=== PATIENT | female | born 1950 | race American Indian/Alaskan Native ===

== ENCOUNTER 2018-07-14 08:06 | Outpatient (CLI) | payer MEDICAID ==
[2018-07-14] MEDS ORDERED: XYLOCAINE TOPICAL 4% TP NR (08:10)
[2018-07-14] MEDS ORDERED: AD OINTMENT TP SCH (10:00)
== END 2018-07-14 08:07 | disposition home or self-care (01) ==
LOC: WOUND 08:06
PROVIDERS: ATTEND Surgery
DX: E11.622 Type 2 diabetes mellitus with other skin ulcer (principal); L97.312 Non-pressure chronic ulcer of right ankle with fat layer exposed; E11.621 Type 2 diabetes mellitus with foot ulcer; L97.512 Non-pressure chronic ulcer of other part of right foot with fat layer exposed; I10 Essential (primary) hypertension
CPT/HCPCS: 11042; G0463; 99205; A6250

== ENCOUNTER 2018-07-21 07:57 | Outpatient (CLI) | payer MEDICAID ==
[2018-07-21] MEDS ORDERED: XYLOCAINE TOPICAL 4% TP ONE (09:00)
== END 2018-07-21 07:58 | disposition home or self-care (01) ==
LOC: WOUND 07:57
PROVIDERS: ATTEND Surgery
DX: E11.621 Type 2 diabetes mellitus with foot ulcer (principal); L97.522 Non-pressure chronic ulcer of other part of left foot with fat layer exposed; E11.622 Type 2 diabetes mellitus with other skin ulcer; L97.812 Non-pressure chronic ulcer of other part of right lower leg with fat layer exposed; L97.312 Non-pressure chronic ulcer of right ankle with fat layer exposed; L97.512 Non-pressure chronic ulcer of other part of right foot with fat layer exposed; I10 Essential (primary) hypertension

== ENCOUNTER 2018-07-25 08:06 | Outpatient (CLI) | payer MEDICAID ==
--- NOTE | 2018-07-25 21:25 | Vascular Lab Report ---
PROCEDURE: US BILATERAL LOWER EXTREMITY VENOUS DUPLEX DOPPLER TECHNIQUE: Duplex Doppler ultrasound of the BILATERAL common and superficial femoral, popliteal, pos terior tibial, proximal deep femoral and greater and small saphenous veins was attempted. Palmer scale imaging with and without compression, spectral waveform analysis with and without augmentation, and c olor flow Doppler were employed. CPT 74578 HISTORY: COMPARISONS: None . FINDINGS: RIGHT LOWER EXTREMITY: Deep Venous Thrombus: None . Superficial Venous Thrombus: None . Venous valvular incompetence: Deep venous reflux is noted in the right common femoral vein measuring 1742 ms. Superficial venous reflux is noted in the right saphenofemoral junction measuring 7867 ms. No reflux is noted in the small saphenous vein. Soft tissue abnormality: None . Other: None . LEFT LOWER EXTREMITY: Deep Venous Thrombus: None . Superficial Venous Thrombus: None . Venous valvular incompetence: Deep venous reflux is noted in the left common femoral vein measuring 2542 ms . No reflux is noted in the greater or small saphenous veins. Soft tissue abnormality: None . Other: None . IMPRESSION: No evidence of deep venous thrombosis Deep venous reflux involving bilateral common femoral veins Superficial venous reflux involving the right saphenofemoral junction. This document is electronically signed by Pablito Lam MD., July 25 2018 09:23:32 PM ET
--- NOTE | 2018-07-26 01:27 | Vascular Lab Report ---
PROCEDURE: US BILATERAL LOWER EXTREMITY ARTERIAL DUPLEX DOPPLER TECHNIQUE: Duplex Doppler ultrasound of either the bilateral lower extremity arteries or arterial by pass grafts was performed with image documentation. HISTORY: Bilateral wolfe wounds COMPARISONS: None . FINDINGS: Arterial waveforms: Triphasic . Thrombus/Stenosis: None . Color signal: Normal . Significant segmental velocity differential: None . Arterial bypass graft: Not present . IMPRESSION: No evidence of significant arterial insufficiency in the bilateral lower extremity. This document is electronically signed by Macy Kaplan DO., July 26 2018 01:25:33 AM ET
== END 2018-07-25 08:07 | disposition home or self-care (01) ==
LOC: VAS 08:06
PROVIDERS: ATTEND Internal Medicine
DX: I82.403 Acute embolism and thrombosis of unspecified deep veins of lower extremity, bilateral (principal)
CPT/HCPCS: 93925; 93970

== ENCOUNTER 2018-07-28 08:12 | Outpatient (CLI) | payer MEDICAID ==
[2018-07-28] MEDS ORDERED: AD OINTMENT TP PRN (08:22)
[2018-07-28] MEDS ORDERED: XYLOCAINE 2%/EPI 1:100,000 INFILTRATI ONE (09:00)
[2018-07-28] MEDS ORDERED: XYLOCAINE 2%/ EPI 1:200,000 INFILTRATI ONE (09:00)
== END 2018-07-28 08:13 | disposition home or self-care (01) ==
LOC: WOUND 08:12
PROVIDERS: ATTEND Surgery
DX: E11.621 Type 2 diabetes mellitus with foot ulcer (principal); L97.522 Non-pressure chronic ulcer of other part of left foot with fat layer exposed; L97.512 Non-pressure chronic ulcer of other part of right foot with fat layer exposed; E11.622 Type 2 diabetes mellitus with other skin ulcer; L97.822 Non-pressure chronic ulcer of other part of left lower leg with fat layer exposed; L97.312 Non-pressure chronic ulcer of right ankle with fat layer exposed; L97.812 Non-pressure chronic ulcer of other part of right lower leg with fat layer exposed; E66.3 Overweight; I10 Essential (primary) hypertension; Z68.27 Body mass index [BMI] 27.0-27.9, adult
CPT/HCPCS: A6250

== ENCOUNTER 2018-08-11 08:01 | Outpatient (CLI) | payer MEDICAID ==
[2018-08-11] MEDS ORDERED: XYLOCAINE TOPICAL 4% TP ONE (08:30)
[2018-08-11] MEDS ORDERED: XYLOCAINE TOPICAL 2% 30ML TP ONE (08:30)
== END 2018-08-11 08:02 | disposition home or self-care (01) ==
LOC: WOUND 08:01
PROVIDERS: ATTEND Surgery
DX: E11.621 Type 2 diabetes mellitus with foot ulcer (principal); L97.522 Non-pressure chronic ulcer of other part of left foot with fat layer exposed; E11.622 Type 2 diabetes mellitus with other skin ulcer; L97.822 Non-pressure chronic ulcer of other part of left lower leg with fat layer exposed; L97.312 Non-pressure chronic ulcer of right ankle with fat layer exposed; L97.512 Non-pressure chronic ulcer of other part of right foot with fat layer exposed; L97.812 Non-pressure chronic ulcer of other part of right lower leg with fat layer exposed; E66.3 Overweight; Z68.27 Body mass index [BMI] 27.0-27.9, adult

== ENCOUNTER 2018-08-15 08:08 | Outpatient (CLI) | payer MEDICAID | END 2018-08-15 08:09 | disposition home or self-care (01) | LOC: WOUND 08:08 | PROVIDERS: ATTEND Surgery | DX: E11.621 Type 2 diabetes mellitus with foot ulcer (principal); L97.521 Non-pressure chronic ulcer of other part of left foot limited to breakdown of skin; L97.511 Non-pressure chronic ulcer of other part of right foot limited to breakdown of skin; E11.622 Type 2 diabetes mellitus with other skin ulcer; L97.821 Non-pressure chronic ulcer of other part of left lower leg limited to breakdown of skin; L97.311 Non-pressure chronic ulcer of right ankle limited to breakdown of skin; L97.811 Non-pressure chronic ulcer of other part of right lower leg limited to breakdown of skin; I10 Essential (primary) hypertension ==

== ENCOUNTER 2018-08-18 07:58 | Outpatient (CLI) | payer MEDICAID ==
[2018-08-18] MEDS ORDERED: XYLOCAINE TOPICAL 4% TP ONE (08:17)
== END 2018-08-18 07:59 | disposition home or self-care (01) ==
LOC: WOUND 07:58
PROVIDERS: ATTEND Surgery
DX: E11.621 Type 2 diabetes mellitus with foot ulcer (principal); L97.522 Non-pressure chronic ulcer of other part of left foot with fat layer exposed; L97.512 Non-pressure chronic ulcer of other part of right foot with fat layer exposed; E11.622 Type 2 diabetes mellitus with other skin ulcer; L97.822 Non-pressure chronic ulcer of other part of left lower leg with fat layer exposed; L97.312 Non-pressure chronic ulcer of right ankle with fat layer exposed; L97.812 Non-pressure chronic ulcer of other part of right lower leg with fat layer exposed; I10 Essential (primary) hypertension

== ENCOUNTER 2018-08-22 08:07 | Outpatient (CLI) | payer MEDICAID | END 2018-08-22 08:08 | disposition home or self-care (01) | LOC: WOUND 08:07 | PROVIDERS: ATTEND Surgery | DX: E11.621 Type 2 diabetes mellitus with foot ulcer (principal); L97.521 Non-pressure chronic ulcer of other part of left foot limited to breakdown of skin; L97.511 Non-pressure chronic ulcer of other part of right foot limited to breakdown of skin; E11.622 Type 2 diabetes mellitus with other skin ulcer; L97.821 Non-pressure chronic ulcer of other part of left lower leg limited to breakdown of skin; L97.811 Non-pressure chronic ulcer of other part of right lower leg limited to breakdown of skin; L97.311 Non-pressure chronic ulcer of right ankle limited to breakdown of skin; I10 Essential (primary) hypertension ==

== ENCOUNTER 2018-08-25 08:06 | Outpatient (CLI) | payer MEDICAID ==
[2018-08-25] MEDS ORDERED: XYLOCAINE TOPICAL 4% TP ONE (08:12)
[2018-08-25] MEDS ORDERED: XYLOCAINE TOPICAL 2% 30ML TP ONE (08:13)
== END 2018-08-25 08:07 | disposition home or self-care (01) ==
LOC: WOUND 08:06
PROVIDERS: ATTEND Surgery
DX: E11.621 Type 2 diabetes mellitus with foot ulcer (principal); L97.522 Non-pressure chronic ulcer of other part of left foot with fat layer exposed; L97.512 Non-pressure chronic ulcer of other part of right foot with fat layer exposed; E11.622 Type 2 diabetes mellitus with other skin ulcer; L97.822 Non-pressure chronic ulcer of other part of left lower leg with fat layer exposed; L97.312 Non-pressure chronic ulcer of right ankle with fat layer exposed; L97.812 Non-pressure chronic ulcer of other part of right lower leg with fat layer exposed; I10 Essential (primary) hypertension

== ENCOUNTER 2018-09-05 08:02 | Outpatient (CLI) | payer MEDICAID ==
[2018-09-05] MEDS ORDERED: AD OINTMENT TP PRN (08:21)
== END 2018-09-05 08:03 | disposition home or self-care (01) ==
LOC: WOUND 08:02
PROVIDERS: ATTEND Surgery
DX: E11.622 Type 2 diabetes mellitus with other skin ulcer (principal); L97.822 Non-pressure chronic ulcer of other part of left lower leg with fat layer exposed; L97.312 Non-pressure chronic ulcer of right ankle with fat layer exposed; L97.812 Non-pressure chronic ulcer of other part of right lower leg with fat layer exposed; E11.621 Type 2 diabetes mellitus with foot ulcer; L97.512 Non-pressure chronic ulcer of other part of right foot with fat layer exposed; I10 Essential (primary) hypertension
CPT/HCPCS: A6250

== ENCOUNTER 2018-09-08 08:06 | Outpatient (CLI) | payer MEDICAID ==
[2018-09-08] MEDS ORDERED: XYLOCAINE TOPICAL 4% TP ONE (08:14)
[2018-09-08] MEDS ORDERED: SILVER NITRATE TP ONE ×2 (08:14→08:58)
[2018-09-08] MEDS ORDERED: XYLOCAINE TOPICAL 2% 30ML TP ONE (08:21)
== END 2018-09-08 08:07 | disposition home or self-care (01) ==
LOC: WOUND 08:06
PROVIDERS: ATTEND Surgery
DX: E11.622 Type 2 diabetes mellitus with other skin ulcer (principal); L97.822 Non-pressure chronic ulcer of other part of left lower leg with fat layer exposed; L97.312 Non-pressure chronic ulcer of right ankle with fat layer exposed; L97.812 Non-pressure chronic ulcer of other part of right lower leg with fat layer exposed; L97.512 Non-pressure chronic ulcer of other part of right foot with fat layer exposed; I10 Essential (primary) hypertension

== ENCOUNTER 2018-09-12 07:55 | Outpatient (CLI) | payer MEDICAID | END 2018-09-12 07:56 | disposition home or self-care (01) | LOC: WOUND 07:55 | PROVIDERS: ATTEND Surgery | DX: E11.622 Type 2 diabetes mellitus with other skin ulcer (principal); L97.822 Non-pressure chronic ulcer of other part of left lower leg with fat layer exposed; L97.312 Non-pressure chronic ulcer of right ankle with fat layer exposed; L97.812 Non-pressure chronic ulcer of other part of right lower leg with fat layer exposed; E11.621 Type 2 diabetes mellitus with foot ulcer; L97.512 Non-pressure chronic ulcer of other part of right foot with fat layer exposed; I10 Essential (primary) hypertension ==

== ENCOUNTER 2018-09-15 07:59 | Outpatient (CLI) | payer MEDICAID ==
[2018-09-15] MEDS ORDERED: XYLOCAINE TOPICAL 2% 30ML TP NR (08:30)
[2018-09-15] MEDS ORDERED: XYLOCAINE TOPICAL 4% TP NR (08:30)
[2018-09-15] MEDS ORDERED: SILVER NITRATE TP NR (08:30)
== END 2018-09-15 08:00 | disposition home or self-care (01) ==
LOC: WOUND 07:59
PROVIDERS: ATTEND Surgery
DX: E11.622 Type 2 diabetes mellitus with other skin ulcer (principal); L97.822 Non-pressure chronic ulcer of other part of left lower leg with fat layer exposed; L97.812 Non-pressure chronic ulcer of other part of right lower leg with fat layer exposed; I10 Essential (primary) hypertension; E66.3 Overweight; Z68.27 Body mass index [BMI] 27.0-27.9, adult

== ENCOUNTER 2018-09-19 07:54 | Outpatient (CLI) | payer MEDICAID | END 2018-09-19 07:55 | disposition home or self-care (01) | LOC: WOUND 07:54 | PROVIDERS: ATTEND Surgery | DX: E11.622 Type 2 diabetes mellitus with other skin ulcer (principal); L97.821 Non-pressure chronic ulcer of other part of left lower leg limited to breakdown of skin; L97.811 Non-pressure chronic ulcer of other part of right lower leg limited to breakdown of skin; I10 Essential (primary) hypertension ==

== ENCOUNTER 2018-09-26 07:54 | Outpatient (CLI) | payer MEDICAID | END 2018-09-26 07:55 | disposition home or self-care (01) | LOC: WOUND 07:54 | PROVIDERS: ATTEND Surgery | DX: E11.622 Type 2 diabetes mellitus with other skin ulcer (principal); L97.821 Non-pressure chronic ulcer of other part of left lower leg limited to breakdown of skin; L97.811 Non-pressure chronic ulcer of other part of right lower leg limited to breakdown of skin; I10 Essential (primary) hypertension ==

== ENCOUNTER 2018-10-06 08:08 | Outpatient (CLI) | payer MEDICAID ==
[2018-10-06] MEDS ORDERED: XYLOCAINE TOPICAL 4% TP ONE (08:58)
== END 2018-10-06 08:09 | disposition home or self-care (01) ==
LOC: WOUND 08:08
PROVIDERS: ATTEND Surgery
DX: E11.622 Type 2 diabetes mellitus with other skin ulcer (principal); L97.822 Non-pressure chronic ulcer of other part of left lower leg with fat layer exposed; L97.811 Non-pressure chronic ulcer of other part of right lower leg limited to breakdown of skin; E11.621 Type 2 diabetes mellitus with foot ulcer; L97.812 Non-pressure chronic ulcer of other part of right lower leg with fat layer exposed; I10 Essential (primary) hypertension; E66.3 Overweight; Z68.27 Body mass index [BMI] 27.0-27.9, adult

== ENCOUNTER 2018-10-10 08:01 | Outpatient (CLI) | payer MEDICAID | END 2018-10-10 08:02 | disposition home or self-care (01) | LOC: WOUND 08:01 | PROVIDERS: ATTEND Surgery | DX: E11.622 Type 2 diabetes mellitus with other skin ulcer (principal); L97.821 Non-pressure chronic ulcer of other part of left lower leg limited to breakdown of skin; L97.811 Non-pressure chronic ulcer of other part of right lower leg limited to breakdown of skin; E11.621 Type 2 diabetes mellitus with foot ulcer; L97.512 Non-pressure chronic ulcer of other part of right foot with fat layer exposed; I10 Essential (primary) hypertension ==

== ENCOUNTER 2018-10-13 07:49 | Outpatient (CLI) | payer MEDICAID ==
[2018-10-13] MEDS ORDERED: XYLOCAINE TOPICAL 4% TP ONE (08:30)
[2018-10-13] MEDS ORDERED: SILVER NITRATE TP ONE (08:30)
== END 2018-10-13 07:50 | disposition home or self-care (01) ==
LOC: WOUND 07:49
PROVIDERS: ATTEND Surgery
DX: E11.622 Type 2 diabetes mellitus with other skin ulcer (principal); I87.313 Chronic venous hypertension (idiopathic) with ulcer of bilateral lower extremity; L97.821 Non-pressure chronic ulcer of other part of left lower leg limited to breakdown of skin; L97.811 Non-pressure chronic ulcer of other part of right lower leg limited to breakdown of skin; E11.621 Type 2 diabetes mellitus with foot ulcer; L97.512 Non-pressure chronic ulcer of other part of right foot with fat layer exposed; I10 Essential (primary) hypertension

== ENCOUNTER 2018-10-17 08:01 | Outpatient (CLI) | payer MEDICAID | END 2018-10-17 08:02 | disposition home or self-care (01) | LOC: WOUND 08:01 | PROVIDERS: ATTEND Surgery | DX: E11.622 Type 2 diabetes mellitus with other skin ulcer (principal); I87.313 Chronic venous hypertension (idiopathic) with ulcer of bilateral lower extremity; L97.821 Non-pressure chronic ulcer of other part of left lower leg limited to breakdown of skin; L97.811 Non-pressure chronic ulcer of other part of right lower leg limited to breakdown of skin; E11.621 Type 2 diabetes mellitus with foot ulcer; L97.512 Non-pressure chronic ulcer of other part of right foot with fat layer exposed; I10 Essential (primary) hypertension ==

== ENCOUNTER 2018-10-20 08:11 | Outpatient (CLI) | payer MEDICAID ==
[2018-10-20] MEDS ORDERED: XYLOCAINE TOPICAL 4% TP ONE (08:18)
== END 2018-10-20 08:12 | disposition home or self-care (01) ==
LOC: WOUND 08:11
PROVIDERS: ATTEND Surgery
DX: I87.313 Chronic venous hypertension (idiopathic) with ulcer of bilateral lower extremity (principal); L97.511 Non-pressure chronic ulcer of other part of right foot limited to breakdown of skin; L97.521 Non-pressure chronic ulcer of other part of left foot limited to breakdown of skin; E66.3 Overweight; Z68.27 Body mass index [BMI] 27.0-27.9, adult

== ENCOUNTER 2018-10-24 07:54 | Outpatient (CLI) | payer MEDICAID | END 2018-10-24 07:55 | disposition home or self-care (01) | LOC: WOUND 07:54 | PROVIDERS: ATTEND Surgery | DX: I87.313 Chronic venous hypertension (idiopathic) with ulcer of bilateral lower extremity (principal); L97.511 Non-pressure chronic ulcer of other part of right foot limited to breakdown of skin; L97.521 Non-pressure chronic ulcer of other part of left foot limited to breakdown of skin; E66.3 Overweight; Z68.27 Body mass index [BMI] 27.0-27.9, adult ==

== ENCOUNTER 2019-06-11 09:32 | Outpatient (CLI) | payer MEDICAID ==
--- NOTE | 2019-06-11 11:55 | Mammography Report ---
BILATERAL DIGITAL SCREENING MAMMOGRAM WITH CAD INDICATION: Routine screening mammography. TECHNIQUE: Digital bilateral 2D mammography was obtained in the craniocaudal and mediolateral obliq ue projections. This examination was interpreted with the benefit of Computer-Aided Detection analysi s. COMPARISON: 06/30/2017, 12/30/2016. FINDINGS: Breast Density: There are scattered areas of fibroglandular density. No suspicious mass, microcalcifications, or architectural distortion. A few benign-appearing right up per outer breast intramammary lymph nodes are again noted. IMPRESSION: No evidence of breast malignancy. Recommend routine screening mammogram in one year. BI-RADS Category 2: Benign. No mammographic evidence of malignancy. Recommend routine screening ma mmography in one year. A "normal" or negative report should not discourage follow up or biopsy of a clinically significant f inding. A written summary of these findings will be mailed to the patient. The patient will be entered into a mammography reporting system which will generate a reminder letter for the patient's next appointmen t at the appropriate interval. The [employer] recommends yearly mammograms starting at age 40 and continuing as l samson as a woman is in good health. Breast MRI is recommended for women with an approximate 20-25% or greater lifetime risk of breast cancer, including women with a strong family history of breast or ova kelsi cancer or who have been treated for Hodgkin's disease. Signer Name: Mickey Hirsch MD Signed: 06/11/2019 11:51 AM Workstation Name: [id number]
== END 2019-06-11 09:33 | disposition home or self-care (01) ==
LOC: SPVWC 09:32
PROVIDERS: ATTEND Internal Medicine
DX: Z12.31 Encounter for screening mammogram for malignant neoplasm of breast (principal); N64.89 Other specified disorders of breast
CPT/HCPCS: 77067